=== PATIENT | female | born 1945 | race Caucasian/White ===

== ENCOUNTER 2017-11-27 15:06 | Observation (INO) ==
[2017-11-27 15:46] LABS: Basophils % 0.7 %; Eosinophils # 0.3 K/mcL (0.0-0.6); Eosinophils % 5.7 %; Hematocrit 36.1 % (35.3-44.9); Immature Granulocytes % 0.2 % (0-4); Lymphocytes # 1.6 K/mcL (0.6-4.6); Lymphocytes % 27.5 %; Mean Corpuscular HGB Conc 33.2 g/dL (31.6-35.5); Mean Corpuscular Hemoglobin 30.2 pg (28.0-33.3); Mean Corpuscular Volume 90.9 fL (83.0-100.0); Mean Platelet Volume 10.1 fL (9.4-12.4); Monocytes # 0.7 K/mcL (0.0-1.3); Monocytes % 12.4 %; Neutrophils # 3.1 K/mcL (1.6-8.9); Platelet Count 241 K/mcL (140-400); Red Blood Count 3.97 M/mcL (3.82-4.97); Red Cell Distribution Width 13.5 % (11.5-14.5); Segmented Neutrophils % 53.5 %
[2017-11-27] MEDS ORDERED: Albuterol 2.5 MG/3 ML NEBULIZER IH ONE (15:56)
[2017-11-27] MEDS ORDERED: Ipratropium/Albuterol Neb 3 ML IH ONE (15:56)
[2017-11-27] MEDS ORDERED: methylPREDNISolone 125 MG/2 ML VIAL IVP ONE (15:56)
[2017-11-27] MEDS ORDERED: Furosemide 40 MG/4 ML VIAL IVP ONE (15:57)
--- NOTE | 2017-11-27 16:03 | Emergency Department Note ---
Disposition Clinical Impression: Acute exacerbation of chronic obstructive airways disease Disposition: Admitted As Inpatient Condition: Fair Forms: ED Satisfaction Letter Time of Disposition: 16:08 SOB HPI - General Chief Complaint: ED Shortness of Breath/Dyspnea Stated Complaint: LADONNA,Fluid retention Time Seen by Provider: 11/27/17 15:20 Source: patient Limitations: no limitations Nursing Notes Reviewed: Yes Vital Signs Reviewed: Yes - History of Present Illness 72-year-old female presents emergency Department with concerns of difficulty in breathing. Patient has a history of congestive heart failure as well as COPD. Patient states her difficulty in breathing has been worsening over the past 2 days. She denies a fever, states she has a cough that is nonproductive. Patient is a peritoneal dialysis patient and still urinates. She believes that she has been retaining fluid in her abdomen and bilateral lower extremities. No changes in the patient's medications. She took a breathing treatment this morning with improvement of her symptoms however she still has significant dyspnea with minimal ambulation. She states she is able to lay flat at night for short periods of time and it has not worsened from her baseline. - Related Data Home Medications Medication Instructions Recorded Confirmed Atorvastatin [Lipitor] 40 mg PO HS 07/09/15 07/09/15 Calcitriol 0.5 mcg PO DAILY 07/09/15 07/09/15 Clopidogrel [Plavix] 75 mg PO DAILY 07/09/15 07/09/15 Gabapentin [Neurontin] 300 mg PO HS 07/09/15 07/09/15 Insulin ASPART [Novolog Flexpen] 35 unit SQ BID 07/09/15 07/09/15 Insulin DETEMIR [Levemir] 50 unit SQ HS 07/09/15 07/09/15 Iron Fum,Ps No.1/Vit C/L.casei 1 each PO DAILY 07/09/15 07/09/15 [Fusion Capsule] Isosorbide MONOnitrate [Isosorbide 60 mg PO DAILY 07/09/15 07/09/15 Mononitrate] Metoprolol [Lopressor] 50 mg PO BID 07/09/15 07/09/15 Omeprazole [PriLOSEC] 20 mg PO 07/09/15 Sodium Bicarbonate 650 mg PO BID 07/09/15 07/09/15 Previous Rx's Medication Instructions Recorded Acetaminophen [Tylenol] 650 mg PO Q6HR PRN #0 tablet 07/11/15 Aspirin 81 mg PO DAILY tab.chew 07/11/15 Docusate [Colace] 100 mg PO BID PRN #0 capsule 07/11/15 Furosemide [Lasix] 80 mg PO DAILY tablet 07/11/15 Ipratropium/Albuterol Neb [Duoneb] 3 ml IH [id number] inhsol 07/11/15 Isosorbide MONOnitrate (24 HR) 60 mg PO DAILY tab.er.24h 07/11/15 [Imdur] Nitroglycerin 0.4 mg SL Q5MIN PRN #0 tab.subl 07/11/15 predniSONE [PredniSONE] 40 mg PO DAILY tablet 07/11/15 Ciprofloxacin [Cipro] 500 mg PO BID #10 tablet 07/12/16 Ondansetron ODT [Zofran ODT] 4 mg SL Q6HR PRN #12 tab.rapdis 07/12/16 Ciprofloxacin [Cipro] 500 mg PO BID #10 tablet 03/12/17 Ondansetron ODT [Zofran ODT] 4 mg SL Q6HR PRN #12 tab.rapdis 03/12/17 Levofloxacin [Levaquin] 750 mg PO DAILY #5 tablet 11/09/17 Allergies Allergy/AdvReac Type Severity Reaction Status Date / Time lisinopril Allergy Rash Verified 04/09/17 10:39 Penicillins Allergy Rash Verified 04/09/17 10:39 All systems ED: reviewed and negative except as stated. Review of Systems: As Per HPI Past Medical History - Past Medical History Attestation: Yes The following information was validated with the patient. Source: patient Medical history: Reports: asthma, CHF, COPD, coronary artery disease, diabetes, hypertension, renal disease Surgical history: Reports: angioplasty/stent (reports total of 5, most recent [facility] 4 years ago. ), other (PD cath insertion. ) Psychiatric history: Reports: no psych history [employer] history: Reports: bilateral tubal ligation - Social History Smoking Status: Never smoker Smokeless Tobacco Status: No Alcohol use: Reports: none Drug use: Reports: none Physical Exam General: Alert and in no acute distress Skin: Warm, dry, intact Head: Normocephalic and atraumatic Neck: Supple, trachea midline and no tenderness Cardiovascular: RRR, no murmur, normal perfusion Respiratory: Wheezing present in the bilateral posterior lung escobar, conversational dyspnea present. Musculoskeletal: Normal strength, trace pitting edema in the bilateral GI: Soft, nontender, nondistended. Bowel sounds present Neuro: A&O to person, place, time and situation. No focal deficits noted on exam Psychiatric: cooperative and appropriate mood and affect. - General Limitations: no limitations General appearance: alert Course Vital Signs Temperature 98.8 F 11/27/17 15:09 Pulse Rate 92 11/27/17 15:09 Respiratory Rate 22 11/27/17 15:09 Blood Pressure 156/68 11/27/17 15:09 O2 Sat by Pulse Oximetry 95 11/27/17 15:09 Temperature 98.8 F 11/27/17 15:09 Pulse Rate 92 11/27/17 15:09 Respiratory Rate 24 11/27/17 16:26 Blood Pressure 156/68 11/27/17 15:09 O2 Sat by Pulse Oximetry 96 11/27/17 16:26 Oxygen Delivery Oxygen Delivery Room Air Shortness of Breath/Dyspnea - MDM Narrative Medical decision making narrative: 72-year-old female with shortness of breath. Patient does have vascular congestion present on her chest x-ray and an elevated BNP. Patient had wheezing in her posterior lung escobar, she improved after treatment with albuterol DuoNeb in emergency department. She did start to have mild bilateral inferior lateral chest pain that occurs with coughing. Patient was given Solu- Medrol emergency department. She will be admitted to the hospitalist for further care and evaluation. - Medical Records Medical records reviewed: Yes I reviewed the patient's medical records. - Lab Data Lab results reviewed: Yes I reviewed the patient's lab results. Result diagrams: 11/27/17 15:26 11/27/17 15:26 Lab Results 11/27/17 11/27/17 11/27/17 Range/Units 15:26 15:26 15:26 WBC 5.8 (4.3-11.1) K/mcL RBC 3.97 (3.82-4.97) M/mcL Hgb 12.0 (11.5-15.4) g/dL Hct 36.1 (35.3-44.9) % MCV 90.9 (83.0-100.0) fL MCH 30.2 (28.0-33.3) pg MCHC 33.2 (31.6-35.5) g/dL RDW 13.5 (11.5-14.5) % Plt Count 241 (140-400) K/mcL MPV 10.1 (9.4-12.4) fL Immature Gran % 0.2 (0-4) % Seg Neutrophils % 53.5 % Lymphocytes % 27.5 % Monocytes % 12.4 % Eosinophils % 5.7 % Basophils % 0.7 % Neutrophils # 3.1 (1.6-8.9) K/mcL Lymphocytes # 1.6 (0.6-4.6) K/mcL Monocytes # 0.7 (0.0-1.3) K/mcL Eosinophils # 0.3 (0.0-0.6) K/mcL Basophils # 0.0 (0.0-0.2) K/mcL Sodium 138 (136-145) mEq/L Potassium 4.1 (3.5-5.1) mEq/L Chloride 101 (98-107) mEq/L Carbon Dioxide 29 (23-29) mEq/L BUN 36 H (8-23) mg/dL Creatinine 3.49 H (0.60-1.20) mg/dL Est GFR ( Amer) 16 L (> 60) Est GFR (Non-Af Amer) 13 L (> 60) BUN/Creatinine Ratio 10 (6-26) Glucose 169 H (70-105) mg/dL Calculated Osmolality 298 (280-300) Lactic Acid (0.5-2.2) mmol/L Calcium 9.5 (8.6-10.3) mg/dL Troponin I 0.04 H* (< 0.04) ng/mL B-Natriuretic Peptide 176 H (Less than 100) pg/mL 11/27/17 Range/Units 15:32 WBC (4.3-11.1) K/mcL RBC (3.82-4.97) M/mcL Hgb (11.5-15.4) g/dL Hct (35.3-44.9) % MCV (83.0-100.0) fL MCH (28.0-33.3) pg MCHC (31.6-35.5) g/dL RDW (11.5-14.5) % Plt Count (140-400) K/mcL MPV (9.4-12.4) fL Immature Gran % (0-4) % Seg Neutrophils % % Lymphocytes % % Monocytes % % Eosinophils % % Basophils % % Neutrophils # (1.6-8.9) K/mcL Lymphocytes # (0.6-4.6) K/mcL Monocytes # (0.0-1.3) K/mcL Eosinophils # (0.0-0.6) K/mcL Basophils # (0.0-0.2) K/mcL Sodium (136-145) mEq/L Potassium (3.5-5.1) mEq/L Chloride (98-107) mEq/L Carbon Dioxide (23-29) mEq/L BUN (8-23) mg/dL Creatinine (0.60-1.20) mg/dL Est GFR ( Amer) (> 60) Est GFR (Non-Af Amer) (> 60) BUN/Creatinine Ratio (6-26) Glucose (70-105) mg/dL Calculated Osmolality (280-300) Lactic Acid 2.1 (0.5-2.2) mmol/L Calcium (8.6-10.3) mg/dL Troponin I (< 0.04) ng/mL B-Natriuretic Peptide (Less than 100) pg/mL - Radiology Data Radiology results reviewed: Yes I reviewed the patient's radiology results. - EKG Data EKG attestation: Yes I reviewed and interpreted this EKG. EKG results narrative: Normal sinus rhythm with a rate of 89 without evidence of STEMI or other dysrhythmia. QTC of 376, QRS of 79
[2017-11-27 16:08] LABS: Calcium 9.5 mg/dL (8.6-10.3); Potassium 4.1 mEq/L (3.5-5.1)
[2017-11-27 16:11] LABS: Troponin I 0.04 ng/mL (< 0.04)
[2017-11-27] MEDS ORDERED: Acetaminophen 325 MG TABLET PO ONE (17:02)
[2017-11-27] MEDS ORDERED: Acetaminophen 325 MG TABLET PO PRN (18:17)
[2017-11-27] MEDS ORDERED: Naloxone 0.4 MG/ML INJ IVP PRN (18:17)
[2017-11-27] MEDS ORDERED: D5% in Water 1,000 ML IVC PRN (18:20)
[2017-11-27] MEDS ORDERED: Dextrose Gel 15 GM/37.5 ML TUBE PO PRN ×2 (18:20)
[2017-11-27] MEDS ORDERED: *HR* Dextrose 50 % in Water (Syg) 50 ML SYRINGE IVP PRN (18:20)
[2017-11-27] MEDS ORDERED: Levalbuterol Neb 1.25 MG/3 ML IH PRN (18:22)
[2017-11-27] MEDS ORDERED: Nitroglycerin 0.4 MG TAB.SUBL SL PRN (18:25)
--- NOTE | 2017-11-27 18:32 | Internal Med History&Physical ---
Date of Encounter: 11/27/17 Time of Encounter: 17:35 Internal Medicine - H&P: HPI Chief complaint: Shortness of breath Admitted From: Home Plans for Post Hospital Care: Home History of present illness: Ms. Montanez is a 72 year old female present to ER for difficulty breathing and cough for 2 days. Past medical history is significant for COPD, asthma, diabetes, CHF, CAD S/P stents, hypertension, End stage renal disease on peritoneal dialysis. Patient has increased shortness of breath and cough in last 2 days. Getting worse progressively. The cough is mainly nonproductive, sometimes with clear sputum. Patient denies a fever, chest pain, nausea, or vomiting. Patient has increased leg swelling and eyelid swelling. Patient said she cannot lay flat for sleeping. In the emergency room, patient has bilateral wheezing. Chest x- ray shows pulmonary edema. Patient was treated with steroid, nebulizer, and Lasix. Patient was admitted for COPD exacerbation and possibly also has fluid overload. Past Med Surg Social Fam HX - Past Medical History Medical history: asthma, CHF, COPD, coronary artery disease, diabetes, hypertension, renal disease Additional medical history: neuropathy Psychiatric history: no psych history - Past Surgical History Surgical History: angioplasty/stent (reports total of 5, most recent [facility] 4 years ago. ), other (PD cath insertion. ) Additional surgical history: PD catheter insertion - Social History Smoking Status: Never smoker Smokeless Tobacco Status: No Alcohol use: none Drug use: none - Family History Mother Hx Family Endocrine Disorder: Yes (diabetes) Internal Medicine - H&P: Meds Atorvastatin [Lipitor] 40 mg PO HS 07/09/15 [History] Calcitriol 0.5 mcg PO DAILY 07/09/15 [History] Clopidogrel [Plavix] 75 mg PO DAILY 07/09/15 [History] Gabapentin [Neurontin] 300 mg PO HS 07/09/15 [History] Insulin ASPART [Novolog Flexpen] 35 unit SQ BID 07/09/15 [History] Insulin DETEMIR [Levemir] 50 unit SQ HS 07/09/15 [History] Iron Fum,Ps No.1/Vit C/L.casei [Fusion Capsule] 1 each PO DAILY 07/09/15 [ History] Isosorbide MONOnitrate [Isosorbide Mononitrate] 60 mg PO DAILY 07/09/15 [History ] Metoprolol [Lopressor] 50 mg PO BID 07/09/15 [History] Omeprazole [PriLOSEC] 20 mg PO 07/09/15 [History] Sodium Bicarbonate 650 mg PO BID 07/09/15 [History] Acetaminophen [Tylenol] 650 mg PO Q6HR PRN #0 tablet 07/11/15 [Rx] Aspirin 81 mg PO DAILY tab.chew 07/11/15 [Rx] Docusate [Colace] 100 mg PO BID PRN #0 capsule 07/11/15 [Rx] Furosemide [Lasix] 80 mg PO DAILY tablet 07/11/15 [Rx] Ipratropium/Albuterol Neb [Duoneb] 3 ml IH [id number] inhsol 07/11/15 [Rx] Isosorbide MONOnitrate (24 HR) [Imdur] 60 mg PO DAILY tab.er.24h 07/11/15 [Rx] Nitroglycerin 0.4 mg SL Q5MIN PRN #0 tab.subl 07/11/15 [Rx] predniSONE [PredniSONE] 40 mg PO DAILY tablet 07/11/15 [Rx] Ciprofloxacin [Cipro] 500 mg PO BID #10 tablet 07/12/16 [Rx] Ondansetron ODT [Zofran ODT] 4 mg SL Q6HR PRN #12 tab.rapdis 07/12/16 [Rx] Ciprofloxacin [Cipro] 500 mg PO BID #10 tablet 03/12/17 [Rx] Ondansetron ODT [Zofran ODT] 4 mg SL Q6HR PRN #12 tab.rapdis 03/12/17 [Rx] Levofloxacin [Levaquin] 750 mg PO DAILY #5 tablet 11/09/17 [Rx] 3 Allergy/AdvReac Type Severity Reaction Status Date / Time lisinopril Allergy Rash Verified 04/09/17 10:39 Penicillins Allergy Rash Verified 04/09/17 10:39 All Systems PM: A 10-system review of systems was performed and is negative for pertinent findings except as documented above in the HPI. - Constitutional Vitals: Temp Pulse Resp BP Pulse Ox 98.8 F 92 24 156/68 96 11/27/17 15:09 11/27/17 15:09 11/27/17 16:26 11/27/17 15:09 09/12/18 16:26 General appearance: Present: mild distress, A&O X 3, morbidly obese, answers questions appropriately Exam: In mild respiratory distress - Head Head exam: Present: atraumatic, normocephalic - Eye Eye exam: Present: PERRL, conjuntiva pink, sclera anicteric Pupils: Present: PERRL - Neck Neck exam general surgery: Present: supple, trachea midline. Absent: lymphadenopathy - Respiratory Respiratory exam: Present: CTAB, wheezes (Diffused bilateral expiratory wheezing ). Absent: accessory muscle use, rales, rhonchi - Cardiovascular Cardiovascular exam: Present: RRR, +S1, +S2, tachycardia. Absent: diastolic murmur, gallop, rubs, systolic murmur - GI/Abdominal GI/Abdominal exam: Present: normal bowel sounds, soft, no peritoneal signs. Absent: distended, tenderness - Extremities Exam Extremities exam: Present: pedal edema (Bilateral pedal edema), warm, radial pulses palpable and symmetrical. Absent: calf tenderness, cyanotic - Neurological Exam Neurological exam: Present: CN II-XII intact, oriented X3, no focal deficits. Absent: pronater drift, facial droop, speech deficit - Skin Skin exam: Present: dry, intact Internal Med - H&P Results - Labs CBC & Chem 7: 11/27/17 15:26 11/27/17 15:26 Labs: Short CBC 11/27/17 Range/Units 15:26 WBC 5.8 (4.3-11.1) K/mcL Hgb 12.0 (11.5-15.4) g/dL Hct 36.1 (35.3-44.9) % Plt Count 241 (140-400) K/mcL Neutrophils # 3.1 (1.6-8.9) K/mcL BMP 11/27/17 15:26 Sodium 138 Potassium 4.1 Chloride 101 Carbon Dioxide 29 BUN 36 H Creatinine 3.49 H Glucose 169 H Calcium 9.5 Cardiac Enzymes 11/27/17 Range/Units 15:26 Troponin I 0.04 H* (< 0.04) ng/mL - EKG Data -: EKG Interpreted by Myself EKG shows normal: sinus rhythm Rate: tachycardia - Impressions ITS Impressions Chest X-Ray 11/27/17 15:21 IMPRESSION: 1. Mild pulmonary edema. D/ / 11/27/2017 16:05:38 Rosalia García MD / mary Interpreting Provider: Rosalia García MD - Assessment and plan (1) Fluid overload Current Visit: Yes Status: Acute Assessment and plan: Patient has increased leg swelling and eyelid swelling. Chest x-ray shows pulmonary edema. Patient has shortness of breath, Consider fluid overload. - Patient is on peritoneal dialysis at home. Nephrology consult was called, and recommend continue overnight peritoneal dialysis. - Patient is still making urine, place Lasix IV 40 mg IV twice a day. - Strict I/O Qualifiers: Hypervolemia type: other Qualified Code(s): E87.79 - Other fluid overload (2) COPD exacerbation Current Visit: No Status: Acute Assessment and plan: Patient has wheezing, nonproductive cough, history of COPD, consider COPD exacerbation/acute bronchitis. - Place patient on IV azithromycin, steroid, and bronchodilator - Cough syrup for symptomatic treatment - Oxygen supplement, CPAP during night as patient has MARK - Closely monitor patient with continuous pulse oximetry (3) Chronic kidney disease, stage V Current Visit: No Status: Acute Assessment and plan: Patient is on peritoneal dialysis at home. We will continue when patient is in the hospital. Nephrology consult. (4) Coronary artery disease Current Visit: No Status: Acute Assessment and plan: Denies chest pain. Patient has chronically elevated troponin probably due to renal disease. EKG shows no significant ST-T changes. - Continue home medication aspirin, Plavix, beta claudio, imdur, and statin. Qualifiers: Coronary Disease-Associated Artery/Lesion type: [place] artery [place] vs. transplanted heart: [place] heart Associated angina: with unstable angina Qualified Code(s): I25.110 - Atherosclerotic heart disease of [place] coronary artery with unstable angina pectoris (5) Diabetes mellitus Current Visit: No Status: Acute Assessment and plan: Patient told me she use Levemir 90 units twice a day at home with NovoLog 40 units before every meal. - Closely monitor glucose level. - Place patient on Levemir 70 units twice a day and high dose sliding scale insulin. May adjust dose per sugar level. Qualifiers: Diabetes mellitus type: type 2 Diabetes mellitus senior care insulin use: with long term care pharmacist use Diabetes mellitus complication status: with kidney complications Diabetes mellitus complication detail: with chronic kidney disease Chronic kidney disease stage: on chronic dialysis Qualified Code(s) : E11.22 - Type 2 diabetes mellitus with diabetic chronic kidney disease; N18.6 - End stage renal disease; Z79.4 - MCC (current) use of insulin; Z99.2 - Dependence on renal dialysis (6) Elevated troponin Current Visit: No Status: Acute Assessment and plan: Patient denies chest pain. Review old chart has chronically elevated troponin. However, patient has history of CAD S/P stent. Symptoms of shortness of breath. - Continue cardiac monitoring - Track 3 sets of troponin - Continue home medication for CAD. (7) Essential (primary) hypertension Current Visit: No Status: Acute Assessment and plan: Continue home medications. Hydralazine 10 mg IV every 6 hours when necessary - Time Spent With Patient Total time spent is greater than 50% in coordination of care (as documented) at patient's floor/unit and/or counseling patient: 40 minutes Greater than 35 minutes
[2017-11-27] MEDS ORDERED: Azithromycin 500 MG in D5% in Water 250 ML IVPB SCH (19:00)
[2017-11-27] MEDS ORDERED: Insulin DETEMIR 100 UNIT/ML X5UNITS SQ SCH (21:00)
[2017-11-27] MEDS ORDERED: Furosemide 40 MG/4 ML VIAL IVP SCH (21:00)
[2017-11-27] MEDS: Levalbuterol Neb 1.25 MG/3 ML IH SCH (21:00)
[2017-11-27] MEDS ORDERED: Insulin LISPRO 300 UNITS/3 ML VIAL SQ SCH (21:00)
[2017-11-27] MEDS ORDERED: PERITON DIALYSIS PERITONEAL ONE (22:01)
[2017-11-27] MEDS ORDERED: DEXT PERITONEAL ONE (22:01)
[2017-11-27] MEDS ORDERED: Perit. Dialysis with Dex 2.5 % 6,000 ML PERITONEAL ONE (22:01)
[2017-11-27 23:07] LABS: Hepatitis B Surface Antigen Nonreactive (Nonreactive)
[2017-11-27] MEDS: methylPREDNISolone 125 MG/2 ML VIAL IVP SCH (23:38)
[2017-11-28] MEDS: Levalbuterol Neb 1.25 MG/3 ML IH SCH ×5 (00:40→11:38)
[2017-11-28 01:39] LABS: Basophils % 0.4 %; Hematocrit 35.2 % (35.3-44.9); Hemoglobin 11.3 g/dL (11.5-15.4); Immature Granulocytes % 0.4 % (0-4); Lymphocytes # 0.8 K/mcL (0.6-4.6); Lymphocytes % 14.9 %; Mean Corpuscular HGB Conc 32.1 g/dL (31.6-35.5); Mean Corpuscular Hemoglobin 29.4 pg (28.0-33.3); Mean Corpuscular Volume 91.7 fL (83.0-100.0); Mean Platelet Volume 10.6 fL (9.4-12.4); Monocytes # 0.1 K/mcL (0.0-1.3); Monocytes % 2.1 %; Neutrophils # 4.4 K/mcL (1.6-8.9); Platelet Count 242 K/mcL (140-400); Red Blood Count 3.84 M/mcL (3.82-4.97); Red Cell Distribution Width 13.5 % (11.5-14.5); Segmented Neutrophils % 82.2 %
[2017-11-28 01:53] LABS: Calcium 8.9 mg/dL (8.6-10.3); Magnesium 2.1 mg/dL (1.6-2.6); Potassium 4.7 mEq/L (3.5-5.1)
[2017-11-28] MEDS ORDERED: Insulin LISPRO 300 UNITS/3 ML VIAL SQ ONE ×2 (02:00→02:19)
[2017-11-28] MEDS ORDERED: Insulin LISPRO 300 UNITS/3 ML VIAL SQ PRN (02:19)
[2017-11-28] MEDS ORDERED: *HR* Dextrose 50 % in Water (Syg) 50 ML SYRINGE IVP PRN ×2 (02:19→07:34)
[2017-11-28] MEDS ORDERED: Insulin Human Regular 100 UNIT in 0.9 % Sodium Chloride 100 ML IVC SCH (02:30)
[2017-11-28 02:49] LABS: VBG HCO3 21 mEq/L (21-27); VBG PCO2 38 mmHg (41-51); VBG PH 7.36 pH Units (7.32-7.42); VBG PO2 137 mmHg (25-50)
--- NOTE | 2017-11-28 02:56 | Event Note ---
Date of Encounter: 11/28/17 Time of Encounter: 02:00 Patient's nurse notified me regarding this patient's blood sugar. Sugars were elevated, despite insulin orders. Ordered BMP and VBG, patient had anion gap of 16, blood glucose of 797 with osmolality of 319. Concern for HHS. Patient undergoing peritoneal dialysis currently. Will transfer to , start insulin drip with close monitoring of her fluid intake and electrolytes. Troponins also elevated in the setting of ESRD and HHS. No chest pain. Will continue to monitor.
[2017-11-28] MEDS ORDERED: *HR* Heparin 5,000 UNIT/ML VIAL SQ SCH ×2 (06:00→18:00)
[2017-11-28 06:22] LABS: Basophils % 0.4 %; Hematocrit 34.6 % (35.3-44.9); Hemoglobin 11.3 g/dL (11.5-15.4); Immature Granulocytes % 0.2 % (0-4); Lymphocytes # 0.8 K/mcL (0.6-4.6); Lymphocytes % 17.2 %; Mean Corpuscular HGB Conc 32.7 g/dL (31.6-35.5); Mean Corpuscular Hemoglobin 29.5 pg (28.0-33.3); Mean Corpuscular Volume 90.3 fL (83.0-100.0); Mean Platelet Volume 10.5 fL (9.4-12.4); Monocytes # 0.1 K/mcL (0.0-1.3); Monocytes % 2.6 %; Neutrophils # 3.6 K/mcL (1.6-8.9); Platelet Count 240 K/mcL (140-400); Red Blood Count 3.83 M/mcL (3.82-4.97); Red Cell Distribution Width 13.2 % (11.5-14.5); Segmented Neutrophils % 79.6 %
[2017-11-28] MEDS: methylPREDNISolone 125 MG/2 ML VIAL IVP SCH (06:35)
[2017-11-28 06:44] LABS: Calcium 9.3 mg/dL (8.6-10.3); Phosphorous 3.5 mg/dL (2.7-4.5)
[2017-11-28] MEDS ORDERED: Insulin LISPRO 300 UNITS/3 ML VIAL SQ SCH (07:30)
[2017-11-28] MEDS ORDERED: Dextrose Gel 15 GM/37.5 ML TUBE PO PRN ×2 (07:34)
[2017-11-28] MEDS ORDERED: Naloxone 0.4 MG/ML INJ IVP PRN (07:34)
[2017-11-28] MEDS ORDERED: Acetaminophen 325 MG TABLET PO PRN (07:34)
[2017-11-28] MEDS ORDERED: Nitroglycerin 0.4 MG TAB.SUBL SL PRN (07:34)
[2017-11-28] MEDS ORDERED: Perit. Dialysis with Dex 2.5 % 6,000 ML PERITONEAL ONE (07:34)
[2017-11-28] MEDS ORDERED: Insulin Regular, Human 100 UNIT/ML IV PRN (07:34)
[2017-11-28] MEDS ORDERED: Levalbuterol Neb 1.25 MG/3 ML IH PRN (07:34)
[2017-11-28] MEDS ORDERED: PERITON DIALYSIS PERITONEAL ONE (07:34)
[2017-11-28] MEDS ORDERED: DEXT PERITONEAL ONE (07:34)
[2017-11-28] MEDS ORDERED: Furosemide 40 MG/4 ML VIAL IVP SCH (08:00)
[2017-11-28] MEDS: Insulin Human Regular 100 UNIT in 0.9 % Sodium Chloride 100 ML IVC SCH ×3 (08:40→13:08)
[2017-11-28] MEDS ORDERED: Aspirin 81 MG TAB.CHEW PO SCH ×2 (09:00)
[2017-11-28] MEDS ORDERED: Isosorbide MONOnitrate (24 HR) 60 MG TAB.ER.24H PO SCH ×2 (09:00)
--- NOTE | 2017-11-28 10:06 | Nephrology Consult Note ---
Date of Encounter: 11/28/17 Time of Encounter: 10:04 Assessment and Plan (1) ESRD on peritoneal dialysis Current Visit: Yes Status: Acute Is currently a patient of Dr. Zamarripa/Dr. Tracy. Runs PD cycyler every night. PD fluid was changed to 4.25 on Saturday or Saturday of this week due to increased edema. Continue to run cycler at night in hospital. (2) Fluid overload Current Visit: Yes Status: Acute Qualifiers: Hypervolemia type: other Qualified Code(s): E87.79 - Other fluid overload (3) COPD exacerbation Current Visit: No Status: Acute Per primary. History of Present Illness - Reason for Consult Consult date: 11/28/17 end stage renal disease - Chief Complaint fluid retention - History of Present Illness Ms. Montanez is a 72 year old female that has ESRD and is on PD at home. She routinely sees Dr. Cuellar/Dr. Tracy for management. PMH: COPD, asthma, diabetes, CHF, CAD S/P stents, hypertension. The patient presented to ED yesterday with shortness of breath and bilateral lower extremity edema. She has been in contact with her nephrology group and they recently changed the PD fluid to 4.25. She does run her home PD cycler every night and reports no trouble with it. Pt is currently on insulin drip for anion gap of 17. Pt admits that shortness of breath has worsened in the last 3 days. Denies CP at this time, but did describe chest discomfort yesterday while in the ED. She said she was just seen in the ED 7 days ago and all they did was give her a breathing tx and sen her home. 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 RN informs me that she has already called report, and they are waiting on a bed. Past Med Surg Social Fam HX - Past Medical History Medical history: asthma, CHF, COPD, coronary artery disease, diabetes, hypertension, renal disease Additional medical history: neuropathy Psychiatric history: no psych history - Past Surgical History Surgical History: angioplasty/stent (reports total of 5, most recent [facility] 4 years ago. ), other (PD cath insertion. ) Additional surgical history: PD catheter insertion - Social History Smoking Status: Never smoker Smokeless Tobacco Status: No Alcohol use: none Drug use: none - Family History Mother Hx Family Endocrine Disorder: Yes (diabetes) Medications and Allergies Atorvastatin [Lipitor] 40 mg PO HS 07/09/15 [History] Clopidogrel [Plavix] 75 mg PO DAILY 07/09/15 [History] Insulin ASPART [Novolog Flexpen] 20 - 40 unit SQ BID 07/09/15 [History] Metoprolol [Lopressor] 25 mg PO BID 07/09/15 [History] Omeprazole [PriLOSEC] 20 mg PO DAILY 07/09/15 [History] Acetaminophen [Tylenol] 650 mg PO Q6HR PRN #0 tablet 07/11/15 [Rx] Nitroglycerin 0.4 mg SL Q5MIN PRN #0 tab.subl 07/11/15 [Rx] Albuterol Sulfate [Ventolin Hfa] 2 puff IH Q12H PRN 11/27/17 [History] Cholecalciferol (D-3) [Vitamin D] 1,000 unit PO DAILY 11/27/17 [History] Cyanocobalamin (Vitamin B-12) [Vitamin B12] 1,000 mcg PO DAILY 11/27/17 [History ] Fluticasone/Vilanterol [Breo Ellipta 100-25 Mcg INH] 1 each IH QAM 11/27/17 [ History] Furosemide [Lasix] 40 mg PO BID 11/27/17 [History] Gabapentin [Neurontin] 600 mg PO DAILY 11/27/17 [History] Insulin DETEMIR [Levemir] 90 unit SQ BID 11/27/17 [History] Ipratropium/Albuterol Neb [Duoneb] 3 ml IH BID 11/27/17 [History] amLODIPine [Norvasc] 5 mg PO DAILY 11/27/17 [History] 3 Allergy/AdvReac Type Severity Reaction Status Date / Time Penicillins Allergy Difficulty Verified 11/27/17 21:14 Breathing lisinopril AdvReac Cough Verified 11/27/17 21:14 Review of Systems Constitutional: weight gain, no chills, no fatigue, no fever(s) Cardiovascular: dyspnea, edema, no chest pain Respiratory: cough Gastrointestinal: diarrhea, no nausea, no vomiting Exam - Vital Signs Vital signs: Initial Vital Signs Temp Pulse Resp BP Pulse Ox 98.8 F 92 22 156/68 95 11/27/17 15:09 11/27/17 15:09 11/27/17 15:09 11/27/17 15:09 11/27/17 15:09 Vital Signs - Last 8 Hours Temp Pulse Resp BP Pulse Ox 11/28/17 07:36 18 93 11/28/17 07:17 98.0 F 99 18 186/85 94 11/28/17 04:10 20 99 11/28/17 03:36 97.9 F 94 18 176/91 97 Intake and Output 11/27/17 11/28/17 11/28/17 23:59 07:59 15:59 Intake Total 250 / 250 53.3 / 53.3 Balance 250 / 250 53.3 / 53.3 Intake: IV Fluids 250 / 250 53.3 / 53.3 HumuLIN R 100 UNIT In 0.9 % 53.3 / 53.3 Sodium Chloride 100 ML @ 0.1 UNIT/KG/HR 11.15 mls/hr IVC CONT ROSY Rx#:[id number] Zithromax 500 mg In Dextrose 5% 250 / 250 250 ML @ 250 mls/hr IVPB Q24H ROSY Rx#:[id number] Other: Meal NPO Weight 110.495 kg Blood Glucose* 589 700 - General Appearance General appearance: well-developed, well-nourished EENT: ATNC, hearing intact, vision intact Neck: supple Respiratory: clear Cardiology: edema (+2 pitting edema noted to bilat lower extremities. Periorbital edema noted to face. ), normal S1, normal S2 - Dialysis Access Additional Comments: PD cath drsg intact. Gastrointestinal: normoactive bowel sounds, no tenderness, no guarding Integumentary: no rash, warm and dry Neurologic: alert and oriented x3 Psychiatric: mood/affect appropriate, cooperative Results - Lab Results 11/28/17 06:07 11/28/17 08:31 Most recent lab results Calcium 9.3 mg/dL (8.6-10.3) 11/28/17 06:07 Phosphorus 3.5 mg/dL (2.7-4.5) 11/28/17 06:07 Magnesium 2.1 mg/dL (1.6-2.6) 11/28/17 01:20 Consult Discharge Plan - Plan Referrals: Raquel Rutherford, DEON [Primary Care Provider] -
--- NOTE | 2017-11-28 10:52 | Discharge Summary ---
Orders not resulted at time of discharge: Pending orders 11/28/17 06:07 A1C [Hgb A1C] Routine 11/28/17 10:28 Glucose Stat Date of Encounter: 11/28/17 Time of Encounter: 09:00 - Discharge Diagnosis (1) Fluid overload Priority: Primary Status: Acute Qualifiers: Hypervolemia type: other Qualified Code(s): E87.79 - Other fluid overload (2) COPD exacerbation Priority: Primary Status: Acute (3) Chronic kidney disease, stage V Priority: Secondary Status: Acute (4) Coronary artery disease Priority: Secondary Status: Acute Qualifiers: Coronary Disease-Associated Artery/Lesion type: [place] artery [place] vs. 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 Montanez is a 72 year old female present to emergency room for shortness of breath and cough and increased swelling. Past medical history is significant for COPD, CHF, diabetes, hypertension, CAD S/P stent, end-stage renal disease on peritoneal dialysis. Patient was diagnosed as fluid overload and COPD exacerbation. She was treated with azithromycin, Solu-Medrol, and bronchodilator. She was also given IV Lasix. Patient has a mild elevated troponin, denies chest pain, serial sets of troponin was checked: 0.04-0.03-0.06-0.15. Patient developed uncontrolled hyperglycemia during night and started insulin drip. Patient stated she has difficult to control diabetes at home with sometimes sugar level high to 600s. Patient's and family said patient keep following cardiology in [facility] and requested to be transferred to [facility] for further management. Transfer center was called, pending for bed availability. I saw and examined patient today. Still has a wheezing but less. In less respiratory distress. Leg swelling has improved. Still on insulin drip for hyperglycemia, which was 800 during night, 630 now, continue on glucose check every hour. Patient's vitals are stable. Oxygen saturation 93% on 3L NC O2, RR 18. We will continue management and close monitoring until [facility] has bed available for transfer. - Time Spent with Patient Total time spent providing and/or coordinating discharge services:40 min Greater than 30 minutes - Discharge Medications Home Medications: RX: Atorvastatin [Lipitor] 40 mg PO HS 07/09/15 [History] RX: Clopidogrel [Plavix] 75 mg PO DAILY 07/09/15 [History] RX: Insulin ASPART [Novolog Flexpen] 20 - 40 unit SQ BID 07/09/15 [History] RX: Metoprolol [Lopressor] 25 mg PO BID 07/09/15 [History] RX: Omeprazole [PriLOSEC] 20 mg PO DAILY 07/09/15 [History] RX: Acetaminophen [Tylenol] 650 mg PO Q6HR PRN #0 tablet 07/11/15 [Rx] RX: Nitroglycerin 0.4 mg SL Q5MIN PRN #0 tab.subl 07/11/15 [Rx] RX: Albuterol Sulfate [Ventolin Hfa] 2 puff IH Q12H PRN 11/27/17 [History] RX: Cholecalciferol (D-3) [Vitamin D] 1,000 unit PO DAILY 11/27/17 [History] RX: Cyanocobalamin (Vitamin B-12) [Vitamin B12] 1,000 mcg PO DAILY 11/27/17 [ History] RX: Fluticasone/Vilanterol [Breo Ellipta 100-25 Mcg INH] 1 each IH QAM 11/27/17 [History] RX: Furosemide [Lasix] 40 mg PO BID 11/27/17 [History] RX: Gabapentin [Neurontin] 600 mg PO DAILY 11/27/17 [History] RX: Insulin DETEMIR [Levemir] 90 unit SQ BID 11/27/17 [History] RX: Ipratropium/Albuterol Neb [Duoneb] 3 ml IH BID 11/27/17 [History] amLODIPine [Norvasc] 5 mg PO DAILY 11/27/17 [History] RX: Aspirin 81 mg PO DAILY tab.chew 11/28/17 [Rx] RX: Furosemide [Lasix] 40 mg IVP BIDDIURETIC vial 11/28/17 [Rx] RX: GuaiFENesin/Dextromethorphan [Robitussin/Dm] 10 ml PO Q6HR udc 11/28/17 [Rx ] RX: Heparin 5,000 unit SQ Q12HCO vial 11/28/17 [Rx] RX: Isosorbide MONOnitrate (24 HR) [Imdur] 60 mg PO DAILY tab.er.24h 11/28/17 [ Rx] RX: Levalbuterol Neb [Xopenex Neb] 1.25 mg IH Q4H PRN vial.neb 11/28/17 [Rx] RX: Levalbuterol Neb [Xopenex Neb] 1.25 mg IH C3CQSOR vial.neb 11/28/17 [Rx] RX: hydrALAZINE [HydrALAZINE] 10 mg IVP Q6HR PRN vial 11/28/17 [Rx] RX: methylPREDNISolone [Solu-MEDROL] 60 mg IVP Q6HR vial 11/28/17 [Rx] Allergies/Adverse Reactions: 3 Allergy/AdvReac Type Severity Reaction Status Date / Time Penicillins Allergy Difficulty Verified 11/27/17 21:14 Breathing lisinopril AdvReac Cough Verified 11/27/17 21:14 Date of admission: 11/27/17 19:35 Primary care physician: Raquel Rutherford Consults: 11/27/17 22:15 Consult to Dialysis [CONS] ONCE Discharging clinician: Sabina Pollock Anticipated date of discharge: 11/28/17 - Constitutional Vitals: Temp Pulse Resp BP Pulse Ox 98.0 F 99 18 186/85 93 11/28/17 07:17 11/28/17 07:17 11/28/17 07:36 11/28/17 07:17 11/28/17 07:36 General appearance: Present: mild distress, A&O X 3, morbidly obese, answers questions appropriately Exam: In mild respiratory distress - Head Head exam: Present: atraumatic, normocephalic - Eye Eye exam: Present: PERRL, conjuntiva pink, sclera anicteric Pupils: Present: PERRL - Neck Neck exam general surgery: Present: supple, trachea midline. Absent: lymphadenopathy - Respiratory Respiratory exam: Present: CTAB. Absent: accessory muscle use, rales, rhonchi, wheezes - Cardiovascular Cardiovascular exam: Present: RRR, +S1, +S2, tachycardia. Absent: diastolic murmur, gallop, rubs, systolic murmur - GI/Abdominal GI/Abdominal exam: Present: normal bowel sounds, soft, no peritoneal signs. Absent: distended, tenderness - Extremities Exam Extremities exam: Present: pedal edema (Mild pedal edema bilaterally), warm, radial pulses palpable and symmetrical. Absent: calf tenderness, cyanotic - Neurological Exam Neurological exam: Present: CN II-XII intact, oriented X3, no focal deficits. Absent: pronater drift, facial droop, speech deficit - Skin Skin exam: Present: dry, intact - Patient Status Disposition: Transfer Critical Access Hosp Condition: Fair Functional capacity at discharge: wheelchair bound Overall status at discharge: patient is not back to baseline - Discharge Instructions Follow Up With: Raquel Rutherford, T[employer]ER [Primary Care Provider] - - Diet and Activity Activity: wear oxygen at all times Diet: diabetic diet, low salt diet
[2017-11-28] MEDS ORDERED: methylPREDNISolone 125 MG/2 ML VIAL IVP SCH ×2 (12:00→16:00)
[2017-11-28 12:06] LABS: Estimated Average Glucose 246 mg/dl; Hemoglobin A1C 10.2 %
--- NOTE | 2017-11-28 15:52 | Electrocardiograph Report ---
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
[2017-11-28] MEDS ORDERED: Azithromycin 500 MG in D5% in Water 250 ML IVPB SCH (19:00)
[2017-11-28 20:45] VITALS: BP 127/66
== END 2017-11-28 14:12 | disposition critical access hospital (66) ==
LOC: 2ANU 15:06 → EMEROOARM 15:06 → 2ANU 20:18 → 2NNU 11-28 03:14
PROVIDERS: ADMIT Internal Medicine; ATTEND Student in an Organized Health Care Education/Training Program